=== PATIENT | male | born 1955 | race Caucasian/White ===

== ENCOUNTER 2025-04-23 06:20 | Day surgery (SDC) | payer OTHER, SELFPAY ==
[2025-04-23 10:21] LABS: Glucose - Point of Care 158 mg/dl (70-99)
== END 2025-04-23 13:59 | disposition home or self-care (01) ==
LOC: GI 06:20
PROVIDERS: ATTENDING PHYSICIAN Internal Medicine Gastroenterology; FAMILY PHYSICIAN Internal Medicine Geriatric Medicine
DX: R19.5 Other fecal abnormalities (principal); K64.8 Other hemorrhoids; K62.7 Radiation proctitis; Y84.2 Radiological procedure and radiotherapy as the cause of abnormal reaction of the patient, or of later complication, without mention of misadventure at the time of the procedure; K92.2 Gastrointestinal hemorrhage, unspecified; D12.3 Benign neoplasm of transverse colon
CPT/HCPCS: 45385; 45382; 43239; 82962; 88305; 88342